=== PATIENT | female | born 1940 | race Caucasian/White ===

== ENCOUNTER → 2018-01-18 | Outpatient (CLI) | payer OTHER, SELFPAY ==
[~2018-01-18] MED LIST: ALBU90OI INH; ASPI325 PO; ASPI81CH PO; ATOR20 PO; BREO ELLIPTA 11 EACH IH; CLOP75 PO; Calcitrate + D1 TAB PO; DIPHEDRYL PO; FISH1000 PO; GLUC500 PO; MOMENI; MSM-GLUCOSAMIN1 EACH PO; NAPR500 PO; NITR.4SL SL; OXYM.05NI; TIMO.5OPG BOTHEYES; TIOT18 INH; TURMERIC500 MG PO; Vitamin C100 M1 PO
== END | disposition home or self-care (01) ==
LOC: LAB 14:05 → LAB SHORT 14:05
DX: N39.0 Urinary tract infection, site not specified (principal)
CPT/HCPCS: 87077; 87086; 87186

== ENCOUNTER → 2018-11-18 | Outpatient (CLI) | payer OTHER, SELFPAY | LOC: LAB 14:36 → LAB SHORT 14:36 | DX: N39.0 Urinary tract infection, site not specified (principal) | CPT/HCPCS: 87077; 87086; 87186 ==